=== PATIENT | female | born 1990 | race Caucasian/White ===

== ENCOUNTER 2016-12-30 15:12 | Emergency (ER) | payer MEDICAID ==
[~2016-12-30] VITALS: Ht 144.8 cm; Wt 61.4 kg
[~2016-12-30 15:12] MED LIST: MACROBID 1100 MG/CAP PO; PRENATAL VITAMI1 TAB PO
[2016-12-30 15:15] VITALS: TEMP 98.5
[2016-12-30] MEDS ORDERED: PRENATA1 CTB PO (15:19)
[2016-12-30 15:56] LABS: BASO # 0.1 (0.0-0.2); BASO % 0.3 % (0.0-2.0); EOS # 0.2 (0.0-0.7); GRAN # 12.3 (1.4-6.5); GRAN % 74.2 % (42.2-75.2); HEMATOCRIT 37.5 % (37.0-47.0); HEMOGLOBIN 12.7 g/dl (12.5-16.0); MEAN CELL VOLUME 81 fl (80.0-100.0); MEAN CORPUSCULAR HEMOGLOBIN 27 pg (27.0-31.0); MEAN CORPUSCULAR HGB CONC 34 g/dl (33.0-37.0); MEAN PLATELET VOLUME 10.4 fl (7.4-10.4); MONO % 6.1 % (1.7-9.3); PLATELET COUNT 393 K/mm3 (130-400); RED BLOOD COUNT 4.63 M/mm3 (4.10-5.30); REDCELL DISTRIBUTION WIDTH-CV 12.8 % (11.5-14.5); WHITE BLOOD COUNT 16.6 K/mm3 (4.8-10.8)
[2016-12-30 16:04] LABS: ADJUSTED CALCIUM 9.4 mg/dL (8.4-10.2); ALBUMIN 4.2 gm/dL (3.5-5.0); BILIRUBIN,TOTAL 0.6 mg/dL (0.0-1.0); CALCIUM 9.6 mg/dL (8.4-10.2); CREATININE, serum 0.44 mg/dL (0.52-1.25); POTASSIUM 3.4 mmol/L (3.4-5.0); TOTAL PROTEIN 7.6 gm/dL (6.4-8.2)
[2016-12-30 17:36] LABS: PH 7 (5-8); SQUAMOUS EPITHELIAL 0-2 /hpf; URINE APPEARANCE Clear; URINE BACTERIA None Seen /hpf; URINE BILIRUBIN Negative (NEGATIVE); URINE BLOOD Negative (NEGATIVE); URINE COLOR Yellow; URINE GLUCOSE Negative (NEGATIVE); URINE KETONE Negative (NEGATIVE); URINE RBC 0-2 /hpf; URINE UROBILINOGEN Negative (NEGATIVE); URINE WBC 0-2 /hpf
[2016-12-30] MEDS ORDERED: CEPHALEXIN500 M1 PO (18:19)
[2016-12-30 18:44] VITALS: BP 130/84; PULSE 84
== END 2016-12-30 18:47 | disposition home or self-care (01) ==
LOC: COL.ER
PROVIDERS: Physician Assistant Medical
DX: O26.891 Other specified pregnancy related conditions, first trimester (principal); Z3A.08 8 weeks gestation of pregnancy; R10.32 Left lower quadrant pain; R10.12 Left upper quadrant pain; R82.99 Other abnormal findings in urine
CPT/HCPCS: J2270; J2550; J7030

== ENCOUNTER → 2017-05-25 | Outpatient (CLI) | payer MEDICAID ==
[~2017-05-25] MED LIST changes: +CEPHALEXIN500 M1 PO; +PRENATA1 CTB PO
== END ==
LOC: SUN.DIA 12:23
DX: O24.419 Gestational diabetes mellitus in pregnancy, unspecified control (principal); Z3A.29 29 weeks gestation of pregnancy; Z71.3 Dietary counseling and surveillance
CPT/HCPCS: G0108

== ENCOUNTER 2017-06-07 14:21 | Inpatient (IN) | payer MEDICAID ==
[~2017-06-07] VITALS: Ht 149.9 cm; Wt 70.0 kg
[2017-06-07 14:38] VITALS: BP 134/80; PULSE 94; TEMP 98.2
[2017-06-07 15:30] VITALS: BP 122/73; PULSE 101
[2017-06-07 15:37] LABS: BASO # 0.1 (0.0-0.2); BASO % 0.4 % (0.0-2.0); EOS # 0.2 (0.0-0.7); EOS % 1.2 % (0-4.0); GRAN # 12.1 (1.4-6.5); LYMPH # 2.3 (1.2-3.4); LYMPH % 14.3 % (20.0-51.0); MEAN CELL VOLUME 79 fl (80.0-100.0); MEAN CORPUSCULAR HGB CONC 32 g/dl (33.0-37.0); MEAN PLATELET VOLUME 10.4 fl (7.4-10.4); MONO # 1.2 (0.1-0.6); MONO % 7.4 % (1.7-9.3); PLATELET COUNT 278 K/mm3 (130-400); REDCELL DISTRIBUTION WIDTH-CV 14.3 % (11.5-14.5); WHITE BLOOD COUNT 16.2 K/mm3 (4.8-10.8)
[2017-06-07 15:43] LABS: HEMATOCRIT 35.6 % (37.0-47.0); HEMOGLOBIN 11.4 g/dl (12.5-16.0); MEAN CORPUSCULAR HEMOGLOBIN 25 pg (27.0-31.0)
[2017-06-07 15:45] LABS: PH 5 (5-8); SQUAMOUS EPITHELIAL None Seen /hpf; URINE APPEARANCE Hazy; URINE BACTERIA Rare /hpf; URINE BILIRUBIN Negative (NEGATIVE); URINE BLOOD 1+ (NEGATIVE); URINE COLOR Yellow; URINE GLUCOSE Negative (NEGATIVE); URINE KETONE 1+ (NEGATIVE); URINE UROBILINOGEN Negative (NEGATIVE)
[2017-06-07 15:46] LABS: URINE WBC >50 /hpf
[2017-06-07 16:00] VITALS: BP 131/76; PULSE 105
[2017-06-07 16:30] VITALS: BP 139/71; PULSE 103; TEMP 98.1
[2017-06-07 21:00] VITALS: BP 119/65; PULSE 116; TEMP 98.4
[2017-06-07 23:50] VITALS: BP 95/61; PULSE 103; TEMP 98.2
[2017-06-08 03:45] VITALS: BP 98/58; PULSE 111; TEMP 97.9
[2017-06-08 08:00] VITALS: BP 106/65; PULSE 104; TEMP 97.5
[2017-06-08 09:29] LABS: MEAN CELL VOLUME 80 fl (80.0-100.0); MEAN CORPUSCULAR HGB CONC 32 g/dl (33.0-37.0); MEAN PLATELET VOLUME 10.6 fl (7.4-10.4); PLATELET COUNT 278 K/mm3 (130-400); RED BLOOD COUNT 3.97 M/mm3 (4.10-5.30); REDCELL DISTRIBUTION WIDTH-CV 14.5 % (11.5-14.5); WHITE BLOOD COUNT 10.4 K/mm3 (4.8-10.8)
[2017-06-08 09:33] LABS: ADD PATHOLOGY DIFF REVIEW NO; HEMATOCRIT 31.6 % (37.0-47.0); HEMOGLOBIN 10.1 g/dl (12.5-16.0); MEAN CORPUSCULAR HEMOGLOBIN 25 pg (27.0-31.0)
[2017-06-08 09:39] LABS: ADJUSTED CALCIUM 9.4 mg/dL (8.4-10.2); ALBUMIN 3.2 gm/dL (3.5-5.0); BILIRUBIN,TOTAL 0.6 mg/dL (0.0-1.0); CALCIUM 8.8 mg/dL (8.4-10.2); CREATININE, serum 0.42 mg/dL (0.52-1.25); POTASSIUM 3.4 mmol/L (3.4-5.0); TOTAL PROTEIN 6.2 gm/dL (6.4-8.2)
[2017-06-08 09:46] LABS: BAND 15 % (0-10); EOSINOPHIL 3 % (0-4); METAMYELOCYTE 2 % (0-0); NEUTROPHILS 55 % (42.0-75.2); PLATELET ESTIMATE NORMAL (NORMAL); POLYCHROMASIA 1+; TOTAL CELLS COUNTED 100
[2017-06-08 11:15] VITALS: BP 100/52; PULSE 98; TEMP 98.3
[2017-06-08 15:00] VITALS: BP 136/63; PULSE 103; TEMP 97.4
[2017-06-08 22:15] VITALS: BP 99/56; PULSE 89; TEMP 98.3
[2017-06-09 02:22] VITALS: BP 95/50; PULSE 93; TEMP 98.5
[2017-06-09 07:15] VITALS: BP 101/56; PULSE 86; TEMP 98.4
[2017-06-09 15:00] VITALS: BP 103/57; PULSE 84; TEMP 98.4
[2017-06-09 20:15] VITALS: BP 112/76; PULSE 103; TEMP 97.6
== END 2017-06-09 22:45 | disposition home or self-care (01) | DRG 781 ==
LOC: LDRO 14:21 → LDR 14:25 → LDRO 17:26 → OB 17:27 → LDR 17:40 → OB 17:40
PROVIDERS: Obstetrics & Gynecology
DX: O23.03 Infections of kidney in pregnancy, third trimester (principal); O24.414 Gestational diabetes mellitus in pregnancy, insulin controlled; O34.211 Maternal care for low transverse scar from previous cesarean delivery; N85.8 Other specified noninflammatory disorders of uterus; Z3A.30 30 weeks gestation of pregnancy
CPT/HCPCS: OP; J0696; J1815; J7030; J7120

== ENCOUNTER → 2017-06-13 | Outpatient (CLI) | payer MEDICAID | LOC: SUN.DIA 06-07 08:53 | DX: O24.414 Gestational diabetes mellitus in pregnancy, insulin controlled (principal); Z3A.32 32 weeks gestation of pregnancy; Z71.3 Dietary counseling and surveillance | CPT/HCPCS: G0108 ==

== ENCOUNTER 2017-08-01 15:57 | Inpatient (IN) | payer MEDICAID ==
[2017-08-01] VITALS (20 sets, daily range): BP systolic 84–142; BP diastolic 48–90; PULSE 81–100; TEMP 97.4–98.2
[~2017-08-01] VITALS: Ht 149.9 cm; Wt 70.0 kg
[2017-08-01] MEDS ORDERED: LEVEMIR100 U/ML SQ (16:23)
[2017-08-01] MEDS ORDERED: GLUCOPHAGE500 MG/TAB PO (16:24)
[2017-08-01] MEDS ORDERED: MACROBID 1100 MG/CAP PO (16:25)
[2017-08-01] MEDS ORDERED: PRENATAL1 TA7 PO (16:26)
[2017-08-01 16:54] LABS: BASO % 0.3 % (0.0-2.0); EOS # 0.2 (0.0-0.7); EOS % 1.7 % (0-4.0); GRAN # 7.9 (1.4-6.5); GRAN % 70.2 % (42.2-75.2); HEMATOCRIT 37.3 % (37.0-47.0); LYMPH # 1.9 (1.2-3.4); LYMPH % 17.2 % (20.0-51.0); MEAN CELL VOLUME 75 fl (80.0-100.0); MEAN CORPUSCULAR HEMOGLOBIN 24 pg (27.0-31.0); MEAN CORPUSCULAR HGB CONC 31 g/dl (33.0-37.0); MEAN PLATELET VOLUME 11.3 fl (7.4-10.4); MONO # 1.1 (0.1-0.6); MONO % 9.7 % (1.7-9.3); PLATELET COUNT 251 K/mm3 (130-400); RED BLOOD COUNT 4.96 M/mm3 (4.10-5.30); REDCELL DISTRIBUTION WIDTH-CV 15.5 % (11.5-14.5); WHITE BLOOD COUNT 11.2 K/mm3 (4.8-10.8)
[2017-08-01 16:55] LABS: HEMOGLOBIN 11.7 g/dl (12.5-16.0)
[2017-08-01 16:59] LABS: ADJUSTED CALCIUM 9.9 mg/dL (8.4-10.2); ALBUMIN 3.7 gm/dL (3.5-5.0); BILIRUBIN,TOTAL 0.6 mg/dL (0.0-1.0); CALCIUM 9.7 mg/dL (8.4-10.2); CREATININE, serum 0.53 mg/dL (0.52-1.25); POTASSIUM 3.8 mmol/L (3.4-5.0); TOTAL PROTEIN 7.2 gm/dL (6.4-8.2)
[2017-08-01] MEDS ORDERED: NOVOLOG 100U100 U/M1 SQ ×3 (17:02→17:04)
[2017-08-02 03:35] VITALS: BP 102/49; PULSE 85; TEMP 97.8
[2017-08-02 07:30] VITALS: BP 99/57; PULSE 75; TEMP 97.6
[2017-08-02 09:53] LABS: HEMATOCRIT 33.9 % (37.0-47.0); HEMOGLOBIN 10.3 g/dl (12.5-16.0)
[2017-08-02 12:30] VITALS: BP 108/63; PULSE 85; TEMP 97.8
[2017-08-02 16:45] VITALS: BP 101/60; PULSE 87; TEMP 97.4
[2017-08-02 20:45] VITALS: BP 94/52; PULSE 85; TEMP 98.4
[2017-08-03 07:10] VITALS: BP 93/48; PULSE 78; TEMP 97.5
[2017-08-03] MEDS ORDERED: IBU600 MG PO (08:52)
[2017-08-03] MEDS ORDERED: PERCOCET 325 MG1 TA2 PO (08:52)
[2017-08-03] MEDS ORDERED: GLUMETZA1000 MG PO (08:53)
[2017-08-03 14:30] VITALS: BP 118/62; PULSE 88; TEMP 98
[2017-08-03 20:58] VITALS: BP 130/80; PULSE 90; TEMP 98.5
[2017-08-04 06:55] VITALS: BP 107/86; PULSE 93; TEMP 97.8
== END 2017-08-04 13:10 | disposition home or self-care (01) | DRG 766 ==
LOC: LDRO 15:57 → LDR 17:13 → OB 17:13 → LDRO 08-11 12:52
PROVIDERS: Obstetrics & Gynecology
PROC: 10D00Z1 Extraction of Products of Conception, Low, Open Approach (ICD-10-PCS; principal; 2017-08-01)
DX: O34.211 Maternal care for low transverse scar from previous cesarean delivery (principal); N85.8 Other specified noninflammatory disorders of uterus; O24.424 Gestational diabetes mellitus in childbirth, insulin controlled; Z3A.38 38 weeks gestation of pregnancy; Z37.0 Single live birth
CPT/HCPCS: J0690; J1885; J2270; J2370; J2405; J2590; J7030

== ENCOUNTER 2019-11-28 09:38 | Outpatient (CLI) | payer MEDICAID ==
[~2019-11-28] VITALS: Ht 149.9 cm; Wt 62.7 kg
[~2019-11-28 09:38] MED LIST changes: +GLUCOPHAGE500 MG/TAB PO; +GLUMETZA1000 MG PO; +IBU600 MG PO; +LEVEMIR100 U/ML SQ; +NOVOLOG 100U100 U/M1 SQ; +PERCOCET 325 MG1 TA2 PO; +PRENATAL1 TA7 PO
--- NOTE | 2019-11-28 09:45 | NUR ---
Patient arrives ambulatory from ER with concerns of leaking fluid since 0700 this morning. Patient states she "had a gush, and then I notice more when I cough". Patient denies vaginal bleeding and reports normal movement. Patient reports lower abdominal cramping, denies contractions. Patient reports frequency of urination but denies pain with urination. Patient states "I am always on antibiotics for UTIs". UA collected on admission via clean catch. Patient changes into gown, EFM explained and placed. VS obtained. Patient is a G5L4 at 23.4 weeks gestation, FHTs dopplered for full minute at 135 bpm. [place] applied. Assessment completed. Amnisure collected per protocol and order and sent. No fluid noted upon collection, moderate amount of white, particulate discharge noted on exam. SVE closed/thick/high. See physician notification. UA sent to lab. Patient updated on plan of care.
[2019-11-28] MEDS ORDERED: MACROBID 1100 MG/CAP PO (09:52)
[2019-11-28] MEDS ORDERED: PRENATAL TABLET PO (09:52)
[2019-11-28 10:15] LABS: COLLECTION METHOD CLEAN CATCH
[2019-11-28 10:40] LABS: MUCOUS Present /lpf; PH 5 (5-8); SQUAMOUS EPITHELIAL 0-2 /hpf; URINE APPEARANCE Cloudy; URINE BACTERIA Many /hpf; URINE BILIRUBIN Negative (NEGATIVE); URINE BLOOD Negative (NEGATIVE); URINE COLOR Amber; URINE GLUCOSE Negative (NEGATIVE); URINE KETONE Negative (NEGATIVE); URINE LEUKOCYTE ESTERASE Negative (NEGATIVE); URINE NITRATE Negative (NEGATIVE); URINE PROTEIN(semi-quant) Negative (NEGATIVE); URINE RBC 0-2 /hpf; URINE UROBILINOGEN Negative (NEGATIVE)
--- NOTE | 2019-11-28 11:10 | NUR ---
1050- Dr. Melissa notified of lab results. Orders to discharge home. 1105- FHTs dopplered by Jerry Khanna RN for full minute at 140 bpm. Patient given discharge instructions. Reviewed importance of continuing medications and oral hydration. Labor precuations given. Patient denies questions and leaves ambulatory at 1115.
== END 2019-11-28 11:12 | disposition home or self-care (01) ==
LOC: LDRO 09:38
PROVIDERS: Obstetrics & Gynecology
DX: O26.892 Other specified pregnancy related conditions, second trimester (principal); R25.2 Cramp and spasm; Z3A.23 23 weeks gestation of pregnancy